=== PATIENT | male | born 1950 | race Caucasian/White ===

== ENCOUNTER 2021-07-07 10:17 | Inpatient (IN) ==
[2021-07-07 11:33] LABS: Basophils # 0.1 10*3/uL (0.0-0.2); Basophils % 0.9 % (0.0-0.8); Eosinophils # 0.1 10*3/uL (0.0-0.87); Eosinophils % 1.7 % (0.00-10.9); Hematocrit 47.1 VOL% (42.0-52.0); Hemoglobin 15.4 GM/DL (14.0-18.0); Immature Granulocytes % 0.4 %; Immature Granulocytes Absolute 0.03 #; Lymphocytes # 1.9 10*3/uL (1.4-4.0); Lymphocytes % 23.4 % (21.2-54.2); Mean Corpuscular HGB Conc 32.7 GM/DL (32-36); Mean Corpuscular Volume 92.5 FL (87-102); Monocytes % 8.7 % (1.7-12.7); Neutrophils % 64.9 % (38.7-73.9); Red Blood Count 5.09 MC/CUMM (3.8-5.5); Red Cell Distribution Width 13.2 % (9.3-17.3); White Blood Count 8.1 T/CUMM (4-12)
[2021-07-07 11:53] LABS: Albumin 3.9 G/DL (3.4-5.0); Bilirubin,Total 0.4 MG/DL (0.20-1.00); Calcium 9.4 MG/DL (8.5-10.1); Osmolality,Calculated 273.7 MOS/KG (273-304); Potassium 3.9 MMOL/L (3.5-5.1); Total Protein 8.5 G/DL (6.4-8.2)
[2021-07-07 12:17] LABS: Platelet Count 259 T/CUMM (130-400)
[2021-07-07] MEDS ORDERED: DEXTROSE 50% 25 GM/50 ML VIAL IV PRN (12:59)
[2021-07-07] MEDS ORDERED: ACETAMINOPHEN 325 MG TABLET PO PRN (12:59)
[2021-07-07] MEDS ORDERED: GLUCAGON 1 MG VIAL IM PRN (12:59)
[2021-07-07] MEDS ORDERED: ONDANSETRON 4 MG/2 ML VIAL IV PRN (12:59)
[2021-07-07] MEDS ORDERED: ENOXAPARIN 40 MG/0.4 ML SYRINGE SUBCUT SCH (13:00)
[2021-07-07] MEDS ORDERED: DEXAMETHASONE 10 MG/1 ML VIAL IV ONE (13:45)
[2021-07-07 13:53] LABS: Bilirubin,Urine Negative (Negative); Blood, Urine Small mg/dL (Negative); Glucose,Urine (UA) Negative (Negative); Ketones,Urine Negative (Negative); Nitrite,Urine Negative (Negative); Protein,Urine Negative; RBC,Urine 1 /HPF (0-4); Urine Appearance CLEAR (Clear); Urine Color Straw (Yellow); Urine Specific Gravity 1.003 (1.001-1.035); Urine Urobilinogen < 2.0 EU/DL (0.2-1.0)
[2021-07-07] MEDS: NICOTINE 14 MG/24 HR PATCH TRANSDERM SCH (17:14)
[2021-07-07] MEDS: DEXAMETHASONE 4 MG/1 ML VIAL IV SCH (20:23)
[2021-07-08] MEDS: DEXAMETHASONE 4 MG/1 ML VIAL IV SCH ×3 (02:48→13:25)
[2021-07-08 07:08] LABS: Basophils % 0.1 % (0.0-0.8); Hemoglobin 14.7 GM/DL (14.0-18.0); Immature Granulocytes % 0.6 %; Immature Granulocytes Absolute 0.07 #; Lymphocytes % 9.1 % (21.2-54.2); Mean Corpuscular HGB Conc 32.7 GM/DL (32-36); Mean Corpuscular Volume 93.2 FL (87-102); Mean Platelet Volume 11.2 FL (9.6-12.0); Monocytes % 1.5 % (1.7-12.7); Neutrophils % 88.7 % (38.7-73.9); Platelet Count 236 T/CUMM (130-400); Red Blood Count 4.83 MC/CUMM (3.8-5.5); Red Cell Distribution Width 13.2 % (9.3-17.3); White Blood Count 11.1 T/CUMM (4-12)
[2021-07-08 07:33] LABS: Alanine Aminotransferase 13 U/L (16-61); Albumin 3.3 G/DL (3.4-5.0); Alkaline Phosphatase 61 U/L (45-117); Aspartate Amino Transferase 9 U/L (0-37); Bilirubin,Total < 0.39 MG/DL (0.20-1.00); Blood Urea Nitrogen 14 MG/DL (7-18); Calcium 9.2 MG/DL (8.5-10.1); Carbon Dioxide 24 MMOL/L (21-32); Estimated Glom Filtration Rate 104 ML/MIN; Glucose 179 MG/DL (74-106); HDL Cholesterol 40 MG/DL (40-60); Osmolality,Calculated 283.4 MOS/KG (273-304); Potassium 4.2 MMOL/L (3.5-5.1); Risk Ratio 6.13; Sodium 140 MMOL/L (136-145); Thyroid Stimulating Hormone 0.386 uIU/ml (0.358-3.74); Total Protein 7.6 G/DL (6.4-8.2); Triglycerides 61 MG/DL (2-150); VLDL Cholesterol 12.2 MG/DL
[2021-07-08 07:50] VITALS: BP 133/73
[2021-07-08] MEDS ORDERED: PANTOPRAZOLE 40 MG TABLET PO SCH (09:00)
[2021-07-08] MEDS: NICOTINE 14 MG/24 HR PATCH TRANSDERM SCH (09:16)
== END 2021-07-08 16:30 | disposition hospice, home (50) | DRG 54 ==
LOC: N.ED 10:17 → N.EDINP 12:59 → N.4E 13:41
PROVIDERS: ADMIT Internal Medicine; ATTEND Internal Medicine